=== PATIENT | male | born 1940 | race Caucasian/White ===

== ENCOUNTER 2018-02-12 12:20 | Inpatient (IN) | payer MEDICARE, BC ==
[2018-02-12 13:29] LABS: ADD MAN DIFF? NO
[2018-02-12 13:35] LABS: BASOPHILS % 0.3 % (0.0-2.0); EOSINOPHILS % 0.2 % (0.0-7.0); HEMATOCRIT 46.6 % (42.0-52.0); HEMOGLOBIN 14.9 g/dl (14.0-18.0); LYMPHOCYTES # 0.9 10^3/ul (0.8-2.9); LYMPHOCYTES % 6.6 % (15.0-51.0); MEAN CORPUSCULAR HEMOGLOBIN 32.4 pg (29.0-33.0); MEAN CORPUSCULAR VOLUME 101.3 fl (82.0-101.0); MEAN PLATELET VOLUME 9.5 fl (7.4-10.4); MONOCYTE # 0.9 10^3/ul (0.3-0.9); MONOCYTES % 6.8 % (0.0-11.0); NEUTROPHIL # 11.4 10^3/ul (1.6-7.5); NEUTROPHILS % 85.7 % (39.0-77.0); PLATELET COUNT 200 10^3/UL (140-415); RED CELL DISTRIBUTION WIDTH 12.5 % (11.5-14.5)
[2018-02-12 13:35] LABS: WHITE BLOOD COUNT 13.2 10^3/ul (4.8-10.8)
[2018-02-12 13:47] LABS: ADD UMIC YES; UR ASCORBIC ACID NEGATIVE (NEGATIVE); UR BACTERIA FEW /HPF (NONE SEEN); UR BILIRUBIN (Dip) NEGATIVE (NEGATIVE); UR BLOOD (Dip) 3+ mg/dL (NEGATIVE); UR CLARITY CLOUDY (CLEAR); UR COLOR RED (YELLOW); UR GLUCOSE (Dip) NEGATIVE (NEGATIVE); UR KETONES (Dip) NEGATIVE (NEGATIVE); UR LEUKOCYTE ESTERASE (Dip) NEGATIVE Leu/ul (NEGATIVE); UR MUCUS FEW /HPF (NONE SEEN); UR NITRITE (Dip) NEGATIVE (NEGATIVE); UR RBC > 182 /HPF (0-5); UR SPECIFIC GRAVITY (Dip) 1.013 (1.003-1.030); UR TOTAL PROTEIN (Dip) 2+ mg/dl (NEGATIVE); UR UROBILINOGEN (Dip) NEGATIVE (NEGATIVE); UR WBC 29 /HPF (0-5)
[2018-02-12] MEDS: KETOROLAC 15 MG INJ IV (13:48)
[2018-02-12] MEDS: CEFTRIAXONE 1 GM/50 ML (PMX) 50 ML IVPB (13:48)
[2018-02-12] MEDS: LACTATED RINGER'S 1,000 ML IV (13:49)
[2018-02-12 13:51] LABS: ALANINE AMINOTRANSFERASE 22 IU/L (13-69); ALBUMIN 4.5 g/dl (3.3-4.9); ALBUMIN/GLOBULIN RATIO 1.36; ALKALINE PHOSPHATASE 87 IU/L (42-121); ANION GAP 10 (8-16); ASPARTATE AMINO TRANSFERASE 30 IU/L (15-46); BILIRUBIN,INDIRECT 1.1 mg/dl (0-1.1); BILIRUBIN,TOTAL 1.1 mg/dl (0.2-1.3); BLOOD UREA NITROGEN 16 mg/dl (7-20); CALCIUM 9.8 mg/dl (8.4-10.2); CARBON DIOXIDE 28 mmol/L (21-31); CHLORIDE 108 mmol/L (97-110); CREATININE 1.02 mg/dl (0.61-1.24); GLUCOSE 106 mg/dl (70-220); LIPASE 65 U/L (23-300); POTASSIUM 4.8 mmol/L (3.5-5.1); SODIUM 141 mmol/L (135-144); TOTAL PROTEIN 7.8 g/dl (6.1-8.1)
[2018-02-12 13:55] LABS: INR 0.98; PROTIME 13.1 Sec (11.9-14.9)
[2018-02-12 13:56] LABS: PARTIAL THROMBOPLASTIN TIME 28.3 Sec (25.0-35.0)
[2018-02-12 14:03] LABS: TROPONIN-I < 0.010 ng/ml (0.000-0.120)
[2018-02-12] MEDS ORDERED: NON-FORMULARY/PATIENT OWN MED (Hydrocodone/Acetaminophen (Norco 5-325 Tablet) 1 EACH) PO (17:00)
[2018-02-12] MEDS: HYDROmorphONE 2 MG/ML SYG IV (17:04)
[2018-02-12] MEDS ORDERED: HYDROmorphONE 1 MG/ML SYG IV (21:30)
[2018-02-12] MEDS: HYDROmorphONE 1 MG/ML SYG IV (21:35)
[2018-02-12] MEDS: TAMSULOSIN (SR) 0.4 MG CAP PO (21:35)
[2018-02-13] MEDS: HYDROmorphONE 1 MG/ML SYG IV (04:30)
[2018-02-13] MEDS: LEVOTHYROXINE 112 MCG TAB PO (06:16)
[2018-02-13] MEDS ORDERED: ZOLPIDEM 5 MG TAB PO (07:30)
[2018-02-13] MEDS: DOCUSATE SODIUM 100 MG CAP PO ×2 (08:53→20:17)
[2018-02-13] MEDS: 1/2 NS + KCL 20 MEQ 1,000 ML IV ×3 (08:54→21:23)
[2018-02-13] MEDS ORDERED: OXYBUTYNIN 5 MG TAB PO (09:00)
[2018-02-13] MEDS: HYDROCODONE/APAP (5/325) TAB PO ×2 (09:19→20:18)
[2018-02-13 09:53] LABS: ADD MAN DIFF? NO
[2018-02-13 10:00] LABS: BASOPHILS % 0.3 % (0.0-2.0); EOSINOPHILS % 0.5 % (0.0-7.0); HEMATOCRIT 40.7 % (42.0-52.0); HEMOGLOBIN 12.8 g/dl (14.0-18.0); LYMPHOCYTES # 0.9 10^3/ul (0.8-2.9); LYMPHOCYTES % 10.9 % (15.0-51.0); MEAN CORPUSCULAR HEMOGLOBIN 32.4 pg (29.0-33.0); MEAN CORPUSCULAR HGB CONC 31.4 g/dl (32.0-37.0); MEAN PLATELET VOLUME 9.6 fl (7.4-10.4); MONOCYTE # 0.8 10^3/ul (0.3-0.9); MONOCYTES % 9.4 % (0.0-11.0); NEUTROPHIL # 6.2 10^3/ul (1.6-7.5); NEUTROPHILS % 78.5 % (39.0-77.0); PLATELET COUNT 172 10^3/UL (140-415); RED BLOOD COUNT 3.95 10^6/ul (4.70-6.10); RED CELL DISTRIBUTION WIDTH 12.4 % (11.5-14.5)
[2018-02-13 10:24] LABS: ALANINE AMINOTRANSFERASE 21 IU/L (13-69); ALBUMIN 3.2 g/dl (3.3-4.9); ALBUMIN/GLOBULIN RATIO 1.18; ALKALINE PHOSPHATASE 55 IU/L (42-121); ANION GAP 9 (8-16); ASPARTATE AMINO TRANSFERASE 21 IU/L (15-46); BILIRUBIN,INDIRECT 1.4 mg/dl (0-1.1); BILIRUBIN,TOTAL 1.4 mg/dl (0.2-1.3); BLOOD UREA NITROGEN 22 mg/dl (7-20); CARBON DIOXIDE 30 mmol/L (21-31); CHLORIDE 105 mmol/L (97-110); CREATININE 1.06 mg/dl (0.61-1.24); GLUCOSE 121 mg/dl (70-220); POTASSIUM 4.5 mmol/L (3.5-5.1); SODIUM 139 mmol/L (135-144); TOTAL PROTEIN 5.9 g/dl (6.1-8.1)
[2018-02-13 12:21] LABS: FREE T4 (FREE THYROXINE) 1.24 ng/dl (0.85-1.93)
[2018-02-13] MEDS: MAGNESIUM HYDROXIDE 30ML CUP PO (12:42)
[2018-02-13 13:56] LABS: THYROID STIMULATING HORMONE 0.119 MIU/L (0.465-4.680)
[2018-02-13] MEDS: HYDROmorphONE 2 MG TAB PO (17:19)
[2018-02-13] MEDS: NA PHOSPHATE/BIPHOS 133 ML ENEMA PR (17:19)
[2018-02-13] MEDS: TAMSULOSIN (SR) 0.4 MG CAP PO (20:17)
[2018-02-14] MEDS: 1/2 NS + KCL 20 MEQ 1,000 ML IV ×5 (02:00→23:29)
[2018-02-14] MEDS: MAGNESIUM HYDROXIDE 30ML CUP PO (05:11)
[2018-02-14] MEDS: LEVOTHYROXINE 112 MCG TAB PO (06:23)
[2018-02-14] MEDS: DOCUSATE SODIUM 100 MG CAP PO ×2 (07:59→21:07)
[2018-02-14] MEDS: HYDROmorphONE 1 MG/ML SYG IV ×2 (13:53→15:53)
[2018-02-14] MEDS: HYDROCODONE/APAP (5/325) TAB PO (15:03)
[2018-02-14] MEDS: HYDROmorphONE 2 MG/ML SYG IV ×2 (17:16→21:07)
[2018-02-14] MEDS: OXYCODONE/ACETAMINOPHEN (5/325) TAB PO ×2 (18:10→23:29)
[2018-02-14] MEDS: METHYLNALTREXONE 12 MG/0.6 ML VIAL SC (20:00)
[2018-02-14] MEDS: SENNA TAB PO (21:00)
[2018-02-14] MEDS: ONDANSETRON 4 MG TAB PO (21:06)
[2018-02-14] MEDS: TAMSULOSIN (SR) 0.4 MG CAP PO (21:07)
[2018-02-15] MEDS: LEVOTHYROXINE 112 MCG TAB PO (06:00)
[2018-02-15] MEDS: DOCUSATE SODIUM 100 MG CAP PO ×2 (07:32→20:30)
[2018-02-15] MEDS: SENNA TAB PO ×2 (07:32→20:30)
[2018-02-15 07:43] LABS: ADD MAN DIFF? NO
[2018-02-15 07:45] LABS: BASOPHILS % 0.3 % (0.0-2.0); EOSINOPHILS % 0.5 % (0.0-7.0); HEMATOCRIT 38.5 % (42.0-52.0); HEMOGLOBIN 12.4 g/dl (14.0-18.0); LYMPHOCYTES % 11.7 % (15.0-51.0); MEAN CORPUSCULAR HEMOGLOBIN 33.2 pg (29.0-33.0); MEAN CORPUSCULAR HGB CONC 32.2 g/dl (32.0-37.0); MEAN CORPUSCULAR VOLUME 102.9 fl (82.0-101.0); MEAN PLATELET VOLUME 9.8 fl (7.4-10.4); MONOCYTE # 0.9 10^3/ul (0.3-0.9); MONOCYTES % 10.7 % (0.0-11.0); NEUTROPHIL # 6.6 10^3/ul (1.6-7.5); NEUTROPHILS % 76.3 % (39.0-77.0); PLATELET COUNT 147 10^3/UL (140-415); RED BLOOD COUNT 3.74 10^6/ul (4.70-6.10); RED CELL DISTRIBUTION WIDTH 12.3 % (11.5-14.5)
[2018-02-15 07:45] LABS: WHITE BLOOD COUNT 8.6 10^3/ul (4.8-10.8)
[2018-02-15 08:04] LABS: INR 1.13; PARTIAL THROMBOPLASTIN TIME 30.2 Sec (25.0-35.0); PROTIME 14.7 Sec (11.9-14.9); PT RATIO 1.1
[2018-02-15 08:13] LABS: ANION GAP 6 (8-16); BLOOD UREA NITROGEN 13 mg/dl (7-20); CALCIUM 8.6 mg/dl (8.4-10.2); CARBON DIOXIDE 30 mmol/L (21-31); CHLORIDE 104 mmol/L (97-110); CREATININE 0.72 mg/dl (0.61-1.24); GLUCOSE 98 mg/dl (70-220); POTASSIUM 5.2 mmol/L (3.5-5.1); SODIUM 135 mmol/L (135-144)
[2018-02-15] MEDS: 1/2 NS + KCL 20 MEQ 1,000 ML IV ×2 (08:52→18:48)
[2018-02-15] MEDS: METHYLNALTREXONE 12 MG/0.6 ML VIAL SC (09:00)
[2018-02-15] MEDS: HYDROmorphONE 2 MG/ML SYG IV ×2 (09:13→20:48)
[2018-02-15] MEDS ORDERED: MEPERIDINE 25 MG INJ IV (12:30)
[2018-02-15] MEDS ORDERED: HYDROmorphONE 1 MG/5 ML IV SYRINGE IV (12:30)
[2018-02-15] MEDS ORDERED: FENTAnyl 50 MCG/ML VIAL IV (12:30)
[2018-02-15] MEDS ORDERED: FENTAnyl 50 MCG/ML VIAL (14:30)
[2018-02-15] MEDS ORDERED: ROCURONIUM 50 MG INJ (14:53)
[2018-02-15] MEDS ORDERED: CEFAZOLIN 1 GM INJ (14:53)
[2018-02-15] MEDS ORDERED: SUGAMMADEX SODIUM 200 MG/2 ML VIAL IV (14:53)
[2018-02-15] MEDS ORDERED: PROPOFOL 20 ML (14:53)
[2018-02-15] MEDS ORDERED: LIDOCAINE 100 MG SYRINGE (14:53)
[2018-02-15] MEDS ORDERED: SUCCINYLCHOLINE CHLORIDE 100 MG/5 ML SYG IV (14:53)
[2018-02-15] MEDS: HYDROmorphONE 1 MG/5 ML IV SYRINGE IV ×2 (15:32→15:49)
[2018-02-15] MEDS: OXYCODONE/ACETAMINOPHEN (5/325) TAB PO ×2 (16:06→20:44)
[2018-02-15] MEDS: FENTAnyl 50 MCG/ML VIAL IV ×2 (16:54→17:10)
[2018-02-15] MEDS: DIPHENHYDRAMINE 50 MG INJ IV (17:00)
[2018-02-15] MEDS: TAMSULOSIN (SR) 0.4 MG CAP PO (20:30)
[2018-02-16] MEDS: LACTULOSE 30ML CUP PO (02:25)
[2018-02-16] MEDS: 1/2 NS + KCL 20 MEQ 1,000 ML IV ×3 (02:25→19:26)
[2018-02-16] MEDS: MAGNESIUM HYDROXIDE 30ML CUP PO (04:32)
[2018-02-16] MEDS: HYDROmorphONE 2 MG/ML SYG IV ×4 (05:05→19:26)
[2018-02-16] MEDS: LEVOTHYROXINE 112 MCG TAB PO (06:45)
[2018-02-16] MEDS: BISACODYL 10 MG SUPP PR (07:02)
[2018-02-16] MEDS: SENNA TAB PO ×2 (07:31→21:09)
[2018-02-16] MEDS: METHYLNALTREXONE 12 MG/0.6 ML VIAL SC (07:31)
[2018-02-16] MEDS: DOCUSATE SODIUM 100 MG CAP PO ×2 (07:31→21:09)
[2018-02-16] MEDS: TAMSULOSIN (SR) 0.4 MG CAP PO (21:09)
[2018-02-17] MEDS: HYDROmorphONE 2 MG/ML SYG IV ×2 (01:52→07:57)
[2018-02-17] MEDS: 1/2 NS + KCL 20 MEQ 1,000 ML IV (03:32)
[2018-02-17] MEDS: LEVOTHYROXINE 112 MCG TAB PO (06:32)
[2018-02-17 09:09] LABS: ADD MAN DIFF? NO
[2018-02-17] MEDS: SENNA TAB PO (09:09)
[2018-02-17] MEDS: METHYLNALTREXONE 12 MG/0.6 ML VIAL SC (09:09)
[2018-02-17] MEDS: DOCUSATE SODIUM 100 MG CAP PO (09:10)
[2018-02-17 09:15] LABS: WHITE BLOOD COUNT 6.8 10^3/ul (4.8-10.8)
[2018-02-17 09:15] LABS: BASOPHILS % 0.3 % (0.0-2.0); EOSINOPHILS # 0.1 10^3/ul (0.0-0.5); EOSINOPHILS % 1.6 % (0.0-7.0); HEMOGLOBIN 13.1 g/dl (14.0-18.0); LYMPHOCYTES # 0.9 10^3/ul (0.8-2.9); LYMPHOCYTES % 13.6 % (15.0-51.0); MEAN CORPUSCULAR HEMOGLOBIN 33.2 pg (29.0-33.0); MEAN CORPUSCULAR HGB CONC 32.8 g/dl (32.0-37.0); MEAN CORPUSCULAR VOLUME 101.5 fl (82.0-101.0); MEAN PLATELET VOLUME 9.9 fl (7.4-10.4); MONOCYTE # 0.7 10^3/ul (0.3-0.9); MONOCYTES % 10.9 % (0.0-11.0); NEUTROPHILS % 73.3 % (39.0-77.0); PLATELET COUNT 163 10^3/UL (140-415); RED BLOOD COUNT 3.94 10^6/ul (4.70-6.10)
[2018-02-17 09:41] LABS: ANION GAP 9 (8-16); BLOOD UREA NITROGEN 9 mg/dl (7-20); CALCIUM 8.8 mg/dl (8.4-10.2); CARBON DIOXIDE 31 mmol/L (21-31); CHLORIDE 100 mmol/L (97-110); CREATININE 0.62 mg/dl (0.61-1.24); GLUCOSE 89 mg/dl (70-220); POTASSIUM 4.5 mmol/L (3.5-5.1); SODIUM 135 mmol/L (135-144)
[2018-02-17] MEDS: HYDROmorphONE 2 MG TAB PO (16:27)
== END 2018-02-17 18:00 | disposition home or self-care (01) | DRG 694 ==
LOC: 5EC 02-17 13:42 → E/R 12:20 → 5EC 15:16
PROC: 0T778DZ Dilation of Left Ureter with Intraluminal Device, Via Natural or Artificial Opening Endoscopic (ICD-10-PCS; principal; 2018-02-15 12:30)
DX: N13.2 Hydronephrosis with renal and ureteral calculous obstruction (principal); E89.0 Postprocedural hypothyroidism; Z85.850 Personal history of malignant neoplasm of thyroid; M51.36 Other intervertebral disc degeneration, lumbar region; K58.1 Irritable bowel syndrome with constipation; N40.1 Benign prostatic hyperplasia with lower urinary tract symptoms; C73 Malignant neoplasm of thyroid gland
CPT/HCPCS: 36415; 71045; 74018; 74176; 74430; 80048; 80053; 81001; 83690; 84153; 84154; 84439; 84443; 84484; 85025; 85610; 85730; 87086; 93005; 96374; 96375; 99285-25